=== PATIENT | female | born 1945 ===

== ENCOUNTER 2016-10-10 20:28 | Inpatient (IN) | payer OTHER ==
[~2016-10-10] VITALS: Ht 160 cm; Wt 64.4 kg
--- NOTE | 2016-10-10 20:37 | NUR ---
Call placed to [facility] for PET evaluation, ETA 30 min.
[2016-10-10] MEDS ORDERED: AMLO10TA2 PO (21:05)
[2016-10-10] MEDS ORDERED: CARI350T27 PO (21:05)
[2016-10-10] MEDS ORDERED: FLUT1DIS28 IH (21:05)
[2016-10-10] MEDS ORDERED: HEPA0.5D3 IJ (21:05)
[2016-10-10] MEDS ORDERED: FAMO-132 PO (21:05)
[2016-10-10] MEDS ORDERED: DOCU100C36 PO (21:05)
[2016-10-10] MEDS ORDERED: QUET100T PO (21:05)
[2016-10-10] MEDS ORDERED: PRED1TAB PO (21:05)
[2016-10-10] MEDS ORDERED: BUSP10TA3 PO (21:05)
[2016-10-10] MEDS ORDERED: BENA20TA2 PO (21:05)
[2016-10-10] MEDS ORDERED: HYDR200T4 PO (21:05)
[2016-10-10] MEDS ORDERED: ONDA4VIA30 IV (21:05)
[2016-10-10] MEDS ORDERED: ALPR0.255 PO (21:05)
[2016-10-10] MEDS ORDERED: ALEN70TA45 PO (21:05)
[2016-10-10] MEDS ORDERED: ACET325T53 PO (21:05)
[2016-10-10] MEDS ORDERED: GABA-534 PO (21:05)
[2016-10-10] MEDS ORDERED: LORA10TA7 PO (21:05)
[2016-10-10] MEDS ORDERED: HYDR-3326 PO (21:05)
[2016-10-10] MEDS ORDERED: ALBU8.5H8 IH (21:05)
[2016-10-10] MEDS ORDERED: TEMA30CA PO (21:05)
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
[2016-10-10 21:20] VITALS: BP 114/83
[2016-10-10] MEDS ORDERED: TEMAZEPAM 7.5 MG CAPSULE PO PRN (21:45)
[2016-10-10] MEDS ORDERED: MAGNESIUM HYDROXIDE 30 ML LIQUID UDC PO PRN (21:45)
[2016-10-10] MEDS ORDERED: LORAZEPAM 0.5 MG TABLET PO PRN (21:45)
[2016-10-10] MEDS ORDERED: ACETAMINOPHEN 325 MG TABLET PO PRN (21:45)
[2016-10-10] MEDS ORDERED: MAG HYDROX/AL HYDROX/SIMETH 30 ML LIQUID UDC PO PRN (21:45)
--- NOTE | 2016-10-10 21:49 | NUR ---
Pt. admitted to GPS, under care of Dr. Baird Belongs List completed
[2016-10-10] MEDS ORDERED: LORAZEPAM 0.5 MG TABLET ONE (22:37)
[2016-10-10] MEDS ORDERED: ALBUTEROL SULFATE 8 GM HFA.AER.AD IH PRN (22:45)
[2016-10-11] MEDS: HYDROCODONE/APAP 5-325MG TABLET PO PRN ×3 (02:01→17:37)
[2016-10-11] MEDS ORDERED: HYDROCODONE/APAP 5-325MG TABLET ONE (02:12)
[2016-10-11 07:13] LABS: BASOPHILS % (AUTO) 0.8 % (0.0-2.0); EOSINOPHILS # (AUTO) 0.1 K/uL (0.0-0.7); EOSINOPHILS % (AUTO) 3.2 % (0.0-7.0); HEMATOCRIT 40.2 % (37-47); HEMOGLOBIN 13.1 G/DL (12.0-16.0); LYMPHOCYTES # (AUTO) 0.9 K/UL (0.8-4.8); MEAN CORPUSCULAR HEMOGLOBIN 31.5 UUG (27.0-31.0); MEAN CORPUSCULAR HGB CONC 33 g/dL (32.0-37.0); MONOCYTES # (AUTO) 0.5 K/UL (0.1-1.30); PLATELET COUNT (AUTO) 291 K/UL (150-450); RED BLOOD CELL COUNT(AUTO) 4.15 MIL/UL (4.2-5.4); WHITE BLOOD COUNT (AUTO) 4.5 K/UL (4.0-11.2)
[2016-10-11 07:30] VITALS: BP 149/78
[2016-10-11] MEDS ORDERED: ALBUTEROL SULFATE 2.5 MG/3 ML NEBU NEB PRN ×2 (07:45→08:00)
[2016-10-11 08:04] LABS: THYROID STIMULATING HORMONE 1.518 mIU/mL (0.358-3.740)
[2016-10-11 08:53] LABS: BILIRUBIN,TOTAL 0.2 mg/dL (0.2-1.0); CREATININE 0.8 mg/dL (0.6-1.3); MAGNESIUM 1.9 mg/dL (1.8-2.4); POTASSIUM 3.9 mmol/L (3.5-5.1); TOTAL PROTEIN, SERUM 7.4 g/dL (6.4-8.2)
[2016-10-11] MEDS: CARISOPRODOL 350 MG TABLET PO SCH ×2 (09:00→17:00)
[2016-10-11] MEDS ORDERED: FLUTICASONE/SALMETEROL 250/50 INHALER IH SCH (09:00)
[2016-10-11] MEDS: DOCUSATE SODIUM 100 MG CAPSULE PO SCH ×2 (09:00→17:00)
[2016-10-11] MEDS: BENAZEPRIL HCL 20 MG TABLET PO SCH (09:00)
[2016-10-11] MEDS: AMLODIPINE 10 MG TABLET PO SCH (09:00)
[2016-10-11] MEDS: HYDROXYCHLOROQUINE SULFATE 200 MG TABLET PO SCH (09:57)
[2016-10-11] MEDS: LORATADINE 10 MG TABLET PO SCH (09:57)
[2016-10-11] MEDS: predniSONE 1 MG TABLET PO SCH (09:58)
[2016-10-11] MEDS: FAMOTIDINE 20 MG TABLET PO SCH ×2 (09:59→17:37)
[2016-10-11] MEDS: FLUTICASONE/VILANTEROL 1 EACH BLST.W.DEV INH SCH (10:03)
--- NOTE | 2016-10-11 11:45 | NUR ---
Initial discharge instructions: Pt resides at home with her daughter-Marylou [[address], [place], [place],[address];[phone]].Per pt,she would like to return home with her daughter Rita.ZACHARY spoke with pt's daughter,Elyse [phone] who reported her sister-Marylou will be accepting the pt back home.Per Elyse,either she or her sister Marylou will pickle solution maker the pt once ready.ZACHARY will confirm with pt's daughter,Marylou.ZACHARY will speak with pt,family,and MD regarding appropriate discharge plans.ZACHARY will form a safe and proper discharge plan.
--- NOTE | 2016-10-11 14:36 | NUR ---
UR Note: ZACHARY faxed current clinicals to Zari JOSPEH at [facility] [ /Fx: [phone]]. AUTHORIZATION# [id number]
[2016-10-11 15:03] VITALS: BP 113/82
[2016-10-11] MEDS: GABAPENTIN 300 MG CAPSULE PO SCH (20:40)
[2016-10-11] MEDS: QUETIAPINE FUMARATE 100 MG TABLET PO SCH (20:43)
[2016-10-11 20:52] VITALS: BP 132/87
[2016-10-12] MEDS: HYDROCODONE/APAP 5-325MG TABLET PO PRN ×4 (02:26→20:43)
[2016-10-12 07:30] VITALS: BP 110/69
[2016-10-12] MEDS: QUETIAPINE FUMARATE 25 MG TABLET PO SCH (08:11)
[2016-10-12] MEDS: FAMOTIDINE 20 MG TABLET PO SCH ×2 (08:11→16:55)
[2016-10-12] MEDS: LORATADINE 10 MG TABLET PO SCH (08:11)
[2016-10-12] MEDS: busPIRone 10 MG TABLET PO SCH ×3 (08:11→16:55)
[2016-10-12] MEDS: FLUTICASONE/VILANTEROL 1 EACH BLST.W.DEV INH SCH (08:12)
[2016-10-12] MEDS: AMLODIPINE 10 MG TABLET PO SCH (08:12)
[2016-10-12] MEDS: BENAZEPRIL HCL 20 MG TABLET PO SCH (08:12)
[2016-10-12] MEDS: predniSONE 1 MG TABLET PO SCH (08:17)
[2016-10-12] MEDS: CARISOPRODOL 350 MG TABLET PO SCH ×2 (08:19→16:55)
[2016-10-12] MEDS: HYDROXYCHLOROQUINE SULFATE 200 MG TABLET PO SCH (08:19)
[2016-10-12] MEDS: DOCUSATE SODIUM 100 MG CAPSULE PO SCH ×2 (08:20→16:55)
--- NOTE | 2016-10-12 10:24 | NUR ---
UR Note: ZACHARY faxed current clinicals to Zari JOSEPH at [facility] [ /Fx: [phone]]. AUTHORIZATION# [id number]
--- NOTE | 2016-10-12 12:00 | NUR ---
PATIENT SEEN AND EXAMINED BY DR ELA ROD WITH NO NEW ORDERS AT THIS TIME
[2016-10-12 15:56] VITALS: BP 110/70
--- NOTE | 2016-10-12 17:57 | NUR ---
RESTING IN BED WITH HER FAMILY AT HER BEDSIDE REFUSED HER SOMA TODAY AND DR ELA ROD AWARE AND STATED OKAY.
[2016-10-12 20:06] VITALS: BP 130/84
[2016-10-12] MEDS: GABAPENTIN 300 MG CAPSULE PO SCH (20:16)
[2016-10-12] MEDS: QUETIAPINE FUMARATE 100 MG TABLET PO SCH (20:16)
--- NOTE | 2016-10-12 22:00 | NUR ---
received to care, lying in bed, easily agitated, but pleasant, upon approach. compliant with medications, and staff direction. PRN norco was given at 2042, for bilateral leg pain 8/10, on pain scale. as of 2199, she appears to be asleep. no pain or distress noted. will continue to monitor closely.
[2016-10-13] MEDS ORDERED: ALENDRONATE SODIUM 70 MG TABLET PO SCH (06:00)
[2016-10-13] MEDS: HYDROCODONE/APAP 5-325MG TABLET PO PRN ×3 (06:23→23:04)
--- NOTE | 2016-10-13 06:23 | NUR ---
slept 7.5 hours, total. is now awake. PRN norco given at this time, for 8/10 lower extremity pain.
[2016-10-13 07:31] VITALS: BP 112/81
[2016-10-13] MEDS: DOCUSATE SODIUM 100 MG CAPSULE PO SCH ×3 (08:41→16:48)
[2016-10-13] MEDS: busPIRone 10 MG TABLET PO SCH ×3 (08:41→16:48)
[2016-10-13] MEDS: LORATADINE 10 MG TABLET PO SCH (08:41)
[2016-10-13] MEDS: FLUTICASONE/VILANTEROL 1 EACH BLST.W.DEV INH SCH (08:41)
[2016-10-13] MEDS: QUETIAPINE FUMARATE 25 MG TABLET PO SCH (08:42)
[2016-10-13] MEDS: predniSONE 1 MG TABLET PO SCH (08:42)
[2016-10-13] MEDS: AMLODIPINE 10 MG TABLET PO SCH (08:42)
[2016-10-13] MEDS: BENAZEPRIL HCL 20 MG TABLET PO SCH (08:42)
[2016-10-13] MEDS: CARISOPRODOL 350 MG TABLET PO SCH ×2 (08:42→16:49)
[2016-10-13] MEDS: FAMOTIDINE 20 MG TABLET PO SCH ×2 (08:42→16:48)
[2016-10-13] MEDS: HYDROXYCHLOROQUINE SULFATE 200 MG TABLET PO SCH (08:42)
--- NOTE | 2016-10-13 09:00 | NUR ---
Alert, oriented x 3, sitting at the edge of bed, complaining of right leg/back pain. Compliant with taking of medication but did not like breakfast
--- NOTE | 2016-10-13 12:30 | NUR ---
Complaining of leg pain. Webb po given. Resting after.
[2016-10-13 16:00] VITALS: BP 110/77
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
[2016-10-13 20:13] VITALS: BP 110/82
[2016-10-13] MEDS: GABAPENTIN 300 MG CAPSULE PO SCH ×2 (21:00→23:04)
[2016-10-13] MEDS: QUETIAPINE FUMARATE 100 MG TABLET PO SCH ×2 (21:00→23:04)
--- NOTE | 2016-10-13 22:00 | NUR ---
received to care, up in wheel chair, talking to self, appearing agitated, and distracted by internal stimuli. stating that her son is outside, waiting to pick her up. states that "the boss said i can be released" reality orientation was attempted, but she remains fixed, in her beliefs. refused bedtime medications. remains angry, and verbally hostile. currently yelling at unseen entities. will continue to monitor closely.
--- NOTE | 2016-10-13 23:04 | NUR ---
took her bedtime medications, at this time, as well as PRN norco, for bilateral lower extremity pain 09/22. appears calmer, and more appropriate.
--- NOTE | 2016-10-13 23:15 | NUR ---
continues to yell at unseen entities. difficult to redirect. currently up in the wheelchair, yelling at the wall. will continue to monitor closely.
--- NOTE | 2016-10-14 01:00 | NUR ---
appears to be asleep, in her chair. no distress noted.
--- NOTE | 2016-10-14 06:00 | NUR ---
slept 5.0 hours, total. remains up in wheel chair. remains verbally hostile. denies any psychotic sx. will continue to monitor closely.
[2016-10-14] MEDS: LORATADINE 10 MG TABLET PO SCH (08:15)
[2016-10-14] MEDS: CARISOPRODOL 350 MG TABLET PO SCH (08:15)
[2016-10-14] MEDS: QUETIAPINE FUMARATE 25 MG TABLET PO SCH (08:15)
[2016-10-14] MEDS: busPIRone 10 MG TABLET PO SCH ×2 (08:16→12:55)
[2016-10-14] MEDS: FAMOTIDINE 20 MG TABLET PO SCH (08:16)
[2016-10-14] MEDS: DOCUSATE SODIUM 100 MG CAPSULE PO SCH (08:16)
[2016-10-14] MEDS: AMLODIPINE 10 MG TABLET PO SCH (08:17)
[2016-10-14] MEDS: BENAZEPRIL HCL 20 MG TABLET PO SCH (08:17)
[2016-10-14] MEDS: HYDROXYCHLOROQUINE SULFATE 200 MG TABLET PO SCH (08:18)
[2016-10-14] MEDS: predniSONE 1 MG TABLET PO SCH (08:19)
[2016-10-14] MEDS: FLUTICASONE/VILANTEROL 1 EACH BLST.W.DEV INH SCH (08:19)
[2016-10-14 09:23] VITALS: BP 116/84
--- NOTE | 2016-10-14 10:49 | NUR ---
DC Note: Patient will be discharged home [[address] [place], [address]; [phone]] via private transportation at 2:00 pm. Patient will be picked up by her daughter, Elyse eRed [phone]. Patients daughter is aware and agreeable with discharge plans. Patient is aware and agreeable with discharge plans. Patient will follow-up with (Spr[facility]ator) [[address] [place], [place] [id number], [place] [address]; ]. Patient will follow-up with (N.P.) Guilherme Smith for medication management on October 20, 2016 at 8:45 am. Patient will follow-up with Cecelia Tay (Therapist) on October 31, 2016 at 12:30 pm. Both appointments will be scheduled at the [facility] [[address] [place] [address], [address]; [phone].
[2016-10-14] MEDS: HYDROCODONE/APAP 5-325MG TABLET PO PRN (13:28)
--- NOTE | 2016-10-14 13:41 | NUR ---
Attempted several times to check pt's bottom to see if she was dry with SURFACE LOGGING SYSTEMS LOGGER, but pt continued to refuse care.
--- NOTE | 2016-10-14 14:45 | NUR ---
Pt left the floor via her wheelchair for discharge back home with the family. Discharge instructions provided and discussed with the pt and family. Meds reconciled by MD and reviewed with the pt and family. All belongings reviewed and returned to the pt. Pt stable and nad noted upon leaving the unit.
--- NOTE | 2016-10-14 14:54 | NUR ---
UR Note: ZACHARY faxed discharge clinicals to Zari JOSEPH at [facility] [ /Fx: [phone]]. AUTHORIZATION# [id number]
== END 2016-10-14 14:45 | disposition home or self-care (01) | DRG 885 ==
LOC: ER 20:28 → GPS 21:35
PROVIDERS: ADMIT Psychiatry & Neurology Psychiatry; ATTEND Internal Medicine
DX: F29 Unspecified psychosis not due to a substance or known physiological condition (principal); I10 Essential (primary) hypertension; K21.9 Gastro-esophageal reflux disease without esophagitis; M06.9 Rheumatoid arthritis, unspecified; M81.0 Age-related osteoporosis without current pathological fracture
CPT/HCPCS: 36415; 83735; 84100; 84443; 85025; 93005; A4663; J7512